=== PATIENT | female | born 1990 | race American Indian/Alaskan Native ===

== ENCOUNTER 2020-07-11 09:53 | Emergency (ER) | payer SELFPAY ==
[2020-07-11] MEDS ORDERED: ACETAMINOPHEN 325 MG TAB PO ONE (12:58)
[2020-07-11] MEDS ORDERED: IBUPROFEN 400 MG TAB PO ONE (12:58)
--- NOTE | 2020-07-11 13:03 | Emergency Department Report ---
ED General Adult HPI - General Chief complaint: Upper Respiratory Infection Stated complaint: CHEST PAIN/CONGESTION/COUGH PUI?: Yes Time Seen by Provider: 07/11/20 12:40 Source: patient, RN notes reviewed Mode of arrival: Ambulatory Limitations: No Limitations - History of Present Illness Initial comments: The patient was evaluated in the emergency department for symptoms described in the history of present illness. He/she was evaluated in the context of the global COVID-19 pandemic, which necessitated consideration that the patient might be at risk for infection with the virus that causes COVID-19. Institutional protocols and algorithms that pertain to the evaluation of patients at risk for COVID-19 are in a state of rapid change based on information released by regulatory bodies including the CDC and federal and state organizations. These policies and algorithms were followed during the patient's care in the emergency department. Please note that these policies, procedures and recommendations changed on a rapid basis. Patient reports that she is not , and reports that she has not delivered or given in the past 6 weeks. During the entire history and physical examination, I had on complete personal protective equipment. 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 No headache, neck pain, abdominal pain, exertional shortness of breath, vomiting, diaphoresis, hematemesis, bright red blood per rectum, or urinary symptoms. She works on a regular basis, and has therefore not been able to socially distance or socially isolate. She wears a mask at work. She does not have loss of taste or smell. She has attempted [id number] remedies, with minimal improvement in symptoms. She states that she is not , denies control tablets, oral contraceptive use, surgery, immobilization, posterior leg pain, swelling. She does not smoke anything. Chest wall pain is intermittent, does not radiate anywhere, increases with palpation, coughing, decreases with rest. The patient denies DVT, pulmonary embolism risk factors. -: days(s) Location: chest Quality: aching Consistency: intermittent Improves with: rest Worsens with: other - Related Data Previous Rx's Medication Instructions Recorded Last Taken Type Acetaminophen [Non-Aspirin Extra 500 mg PO Q6HR PRN #30 tablet 07/11/20 Unknown Rx Strength] Albuterol Sulfate [Proair 90 mcg IH Q4HR PRN #2 aer.pow.ba 07/11/20 Unknown Rx Respiclick] Benzonatate [Tessalon Perles] 100 mg PO Q8HR PRN #30 capsule 07/11/20 Unknown Rx Ibuprofen [Motrin] 600 mg PO Q8H PRN #30 tablet 07/11/20 Unknown Rx Allergies Allergy/AdvReac Type Severity Reaction Status Date / Time No Known Allergies Allergy Verified 07/11/20 09:54 ED Review of Systems ROS: Stated complaint: CHEST PAIN/CONGESTION/COUGH Other details as noted in HPI Constitutional: denies: fever, malaise, weakness ENT: congestion. denies: throat pain, dental pain, hearing loss Respiratory: cough. denies: wheezing Cardiovascular: chest pain. denies: syncope Gastrointestinal: denies: abdominal pain, nausea, vomiting, constipation, hematemesis, melena Genitourinary: denies: dysuria Musculoskeletal: myalgia Neurological: denies: weakness ED Past Medical Hx - Past Medical History Previous Medical History?: No - Surgical History Past Surgical History?: No - Social History Smoking Status: Never Smoker Substance Use Type: None - Medications Home Medications: Home Medications Medication Instructions Recorded Confirmed Last Taken Type Acetaminophen [Non-Aspirin Extra 500 mg PO Q6HR PRN #30 tablet 07/11/20 Unknown Rx Strength] Albuterol Sulfate [Proair 90 mcg IH Q4HR PRN #2 aer.pow.ba 07/11/20 Unknown Rx Respiclick] Benzonatate [Tessalon Perles] 100 mg PO Q8HR PRN #30 capsule 07/11/20 Unknown Rx Ibuprofen [Motrin] 600 mg PO Q8H PRN #30 tablet 07/11/20 Unknown Rx ED Physical Exam - General Limitations: No Limitations General appearance: alert, in no apparent distress, obese - Head Head exam: Present: atraumatic, normocephalic - Eye Eye exam: Present: normal appearance, EOMI. Absent: nystagmus - ENT ENT exam: Present: normal exam, normal orophraynx, mucous membranes moist, normal external ear exam - Neck Neck exam: Present: normal inspection, full ROM. Absent: tenderness, meningismus - Respiratory Respiratory exam: Present: normal lung sounds bilaterally, chest wall tenderness. Absent: respiratory distress, wheezes, rales, rhonchi, stridor - Cardiovascular Cardiovascular Exam: Present: regular rate, normal rhythm, normal heart sounds. Absent: bradycardia, tachycardia, irregular rhythm, systolic murmur, diastolic murmur, rubs, gallop - GI/Abdominal GI/Abdominal exam: Present: soft, normal bowel sounds. Absent: distended, tenderness, guarding, rebound, rigid - Extremities Exam Extremities exam: Present: normal inspection, full ROM, other (2+ pulses noted in the bilateral upper and lower extremities. There is no palpable cord. negative Homans sign. Muscular compartments are soft. The pelvis is stable.). Absent: pedal edema, calf tenderness - Back Exam Back exam: Present: normal inspection, full ROM. Absent: tenderness, CVA tenderness (R), CVA tenderness (L), paraspinal tenderness, vertebral tenderness - Neurological Exam Neurological exam: Present: alert, normal gait, other (No facial droop. Tongue midline. Extraocular movements intact bilaterally. Facial sensation intact to light touch in V1, V2, V3 distribution bilaterally. 5 and a 5 strength in 4 extremities. Sensation intact to light touch in 4 extremities.). Absent: motor sensory deficit - Psychiatric Psychiatric exam: Present: normal affect, normal mood - Skin Skin exam: Present: warm, dry, intact, normal color. Absent: rash ED Course Vital Signs 07/11/20 09:58 Temperature 98.0 F Pulse Rate 124 H Respiratory 16 Rate Blood Pressure 154/69 O2 Sat by Pulse 100 Oximetry ED Medical Decision Making - Lab Data Vital Signs 07/11/20 09:58 Temperature 98.0 F Pulse Rate 124 H Respiratory 16 Rate Blood Pressure 154/69 O2 Sat by Pulse 100 Oximetry - EKG Data -: EKG Interpreted by Me EKG shows normal: sinus rhythm Rate: tachycardia - EKG Data When compared to previous EKG there are: previous EKG unavailable 07/11/20 13:04 Sinus rhythm, tachycardia, 105 bpm, normal axis, normal intervals, minimal motion artifact. This EKG is not a STEMI. There is no prior available for comparison. - Radiology Data Radiology results: image reviewed interpreted by me: 1 view x-ray of the chest, interpreted by myself, shows clear lungs, unremarkable osseous anatomy, no obvious infiltrate, no pneumothorax. - Medical Decision Making Differential diagnosis, including but not limited to: Bronchitis, allergies, costochondritis, pneumonia Assessment and plan: 30-year-old female who with resolved tachycardia, heart rate currently 92 bpm, not tachypneic or hypoxic, with no DVT, pulmonary embolism risk factors, low risk by Wells criteria, no loss of taste or smell, presenting with 1 week of presumed costochondritis and bronchitis. May be Covid, however, given duration of symptoms, unremarkable vital signs and/or oxygen saturation, benign clinical appearance, does not meet criteria for hospitalization or admission. Reassurance provided to patient, extensive discussion had with patient regarding need to socially distance, self isolate, and also discussing the natural history of bronchitis and costochondritis. I advised patient that she may benefit from weight loss. EKG unremarkable, x-ray the chest pending. If unremarkable, discharged with acetaminophen, ibuprofen, albuterol, Tessalon Perles, can follow-up with an outpatient primary care doctor. Critical care attestation.: If time is entered above; I have spent that time in minutes in the direct care of this critically ill patient, excluding procedure time. ED Disposition Clinical Impression: Bronchitis, Chest wall pain Disposition: DC-01 TO HOME OR SELFCARE Is pt being admited?: No Does the pt Need Aspirin: No Condition: Good Instructions: Chest Pain (ED), Chronic Bronchitis (ED) Additional Instructions: As we discussed, the patient most likely has novel coronavirus/COVID. the symptoms of COVID will typically persist 10 to 14 days. There is no cure at this time for COVID. Please make certain to self isolate and self quarantine, follow-up with an outpatient primary care doctor within the next 3 to 5 days, wash hands with soap and water frequently, thoroughly and often, patient may take the prescribed medications as needed and directed. Advance diet and drink plenty of fluids as tolerated. Avoid interactions with the very elderly, very young, and those with chronic medical conditions. Return to the emergency room right away with new pain, worsening pain, migration of pain, projectile vomiting, change in mental status, confusion, inability to tolerate liquid feeds, new, worsened or different symptoms not present on the initial emergency room evaluation. Prescriptions: Ibuprofen [Motrin] 600 mg PO Q8H PRN #30 tablet PRN Reason: Pain Acetaminophen [Non-Aspirin Extra Strength] 500 mg PO Q6HR PRN #30 tablet PRN Reason: Pain , Severe (7-10) Albuterol Sulfate [Proair Respiclick] 90 mcg IH Q4HR PRN #2 aer.pow.ba PRN Reason: Wheezing Benzonatate [Tessalon Perles] 100 mg PO Q8HR PRN #30 capsule PRN Reason: Cough Referrals: NATASHA BRICENO MD [Staff Physician] - 3-5 Days [facility] [Provider Group] - 3-5 Days Forms: Work/School Release Form(ED)
--- NOTE | 2020-07-11 13:23 | XRay Report ---
XR chest 1V ap INDICATION / CLINICAL INFORMATION: chest wall pain with coughing COMPARISON: None available. FINDINGS: SUPPORT DEVICES: None. HEART / MEDIASTINUM: No significant abnormality. LUNGS / PLEURA: Lungs are clear. Costophrenic sulci are sharp. No pneumothorax. ADDITIONAL FINDINGS: No significant additional findings. IMPRESSION: 1. No acute findings. Signer Name: Juan J Galo MD Signed: 07/11/2020 1:18 PM Workstation Name: [id number]
[2020-07-11 13:25] VITALS: BP 139/89
== END 2020-07-11 13:46 | disposition home or self-care (01) ==
LOC: ED 09:53
DX: J40 Bronchitis, not specified as acute or chronic (principal); R07.89 Other chest pain; Z79.899 Other long term (current) drug therapy
CPT/HCPCS: 71045; 93005

== ENCOUNTER 2021-08-10 11:38 | Emergency (ER) | payer SELFPAY ==
[2021-08-10] MEDS ORDERED: ACETAMINOPHEN 500 MG TAB PO STA (12:00)
[2021-08-10] MEDS ORDERED: IBUPROFEN 800 MG TAB PO STA (12:41)
[2021-08-10 12:44] LABS: Basophils % (Auto) 0.9 % (0.0-1.8); Eosinophils % (Auto) 0.2 % (0.0-4.3); Hematocrit 37.1 % (30.3-42.9); Hemoglobin 11.1 gm/dl (10.1-14.3); Lymphocytes # (Auto) 1.2 K/mm3 (1.2-5.4); Lymphocytes % (Auto) 21.9 % (13.4-35.0); Mean Corpuscular HGB Conc 30 % (30-34); Mean Corpuscular Volume 72 fl (79-97); Monocytes # (Auto) 0.5 K/mm3 (0.0-0.8); Monocytes % (Auto) 9.7 % (0.0-7.3); Platelet Count 281 K/mm3 (140-440); Red Blood Count 5.15 M/mm3 (3.65-5.03); Red Cell Distribution Width 17.8 % (13.2-15.2)
--- NOTE | 2021-08-10 12:45 | Emergency Department Report ---
ED General Adult HPI - General Chief complaint: Chest Pain Stated complaint: CHEST PAIN, HEAVY COUGH, HEADACHE Time Seen by Provider: 08/10/21 11:59 Source: patient Mode of arrival: Ambulatory Limitations: No Limitations - History of Present Illness Initial comments: 31-year-old -[place] female patient presents with complaints of cough, body aches, chills, and chest pain. Patient states her symptoms began with a sore throat on Sunday. She states the sore throat resolved and she developed a cough with mild yellow/brown mucus production. She states her chest pain mainly occurs with coughing and is sharp in nature. She states there is a dull pressure-like pain in her chest when she is not coughing or when she is taking a deep breath. Patient states she is vaccinated against COVID-19. She has not had a flu vaccine. No past medical history per patient. She also denies any shortness of breath, loss of taste or smell, recent known sick contacts, nausea/vomiting/diarrhea, hormone use, recent long travel, or leg pain/swelling. No history of DVT/PE/cancer per patient. Severity scale (0 -10): 7 - Related Data Previous Rx's Medication Instructions Recorded Last Taken Type Acetaminophen [Non-Aspirin Extra 500 mg PO Q6HR PRN #30 tablet 07/11/20 Unknown Rx Strength] Albuterol Sulfate [Proair 90 mcg IH Q4HR PRN #2 aer.pow.ba 07/11/20 Unknown Rx Respiclick] Benzonatate [Tessalon Perles] 100 mg PO Q8HR PRN #30 capsule 07/11/20 Unknown Rx Ibuprofen [Motrin] 600 mg PO Q8H PRN #30 tablet 07/11/20 Unknown Rx Benzonatate 200 mg PO TID PRN #30 capsule 08/10/21 Unknown Rx Ibuprofen [Motrin 800 MG tab] 800 mg PO Q8HR PRN #20 tablet 08/10/21 Unknown Rx predniSONE [Deltasone] 20 mg PO BID 3 Days #6 tablet 08/10/21 Unknown Rx Allergies Allergy/AdvReac Type Severity Reaction Status Date / Time No Known Allergies Allergy Verified 08/10/21 11:49 ED Review of Systems ROS: Stated complaint: CHEST PAIN, HEAVY COUGH, HEADACHE Other details as noted in HPI Constitutional: chills, malaise. denies: diaphoresis, fever Respiratory: cough. denies: shortness of breath Cardiovascular: as per HPI. denies: dyspnea on exertion Gastrointestinal: denies: abdominal pain, nausea, vomiting Neurological: headache (Mild patient). denies: numbness, paresthesias, confusion, abnormal gait Hematological/Lymphatic: denies: swollen glands ED Past Medical Hx - Social History Smoking Status: Never Smoker Substance Use Type: None - Medications Home Medications: Home Medications Medication Instructions Recorded Confirmed Last Taken Type Acetaminophen [Non-Aspirin Extra 500 mg PO Q6HR PRN #30 tablet 07/11/20 Unknown Rx Strength] Albuterol Sulfate [Proair 90 mcg IH Q4HR PRN #2 aer.pow.ba 07/11/20 Unknown Rx Respiclick] Benzonatate [Tessalon Perles] 100 mg PO Q8HR PRN #30 capsule 07/11/20 Unknown Rx Ibuprofen [Motrin] 600 mg PO Q8H PRN #30 tablet 07/11/20 Unknown Rx Benzonatate 200 mg PO TID PRN #30 capsule 08/10/21 Unknown Rx Ibuprofen [Motrin 800 MG tab] 800 mg PO Q8HR PRN #20 tablet 08/10/21 Unknown Rx predniSONE [Deltasone] 20 mg PO BID 3 Days #6 tablet 08/10/21 Unknown Rx ED Physical Exam - General Limitations: No Limitations General appearance: alert, in no apparent distress, obese - Head Head exam: Present: atraumatic, normocephalic - Eye Eye exam: Absent: scleral icterus - ENT ENT exam: Present: normal orophraynx - Respiratory Respiratory exam: Present: normal lung sounds bilaterally, chest wall tenderness. Absent: respiratory distress - Cardiovascular Cardiovascular Exam: Present: regular rate, normal rhythm - GI/Abdominal GI/Abdominal exam: Present: soft. Absent: tenderness - Extremities Exam Extremities exam: Absent: calf tenderness (No swelling noted to legs bilaterally) - Neurological Exam Neurological exam: Present: alert, oriented X3, normal gait - Psychiatric Psychiatric exam: Present: normal affect, normal mood - Skin Skin exam: Present: warm, dry, intact, normal color. Absent: rash ED Course Vital Signs 08/10/21 08/10/21 11:50 14:06 Temperature 100.2 F H 98.4 F Pulse Rate 107 H 64 Respiratory 20 15 Rate Blood Pressure 153/86 Blood Pressure 130/80 [Right] O2 Sat by Pulse 99 100 Oximetry ED Medical Decision Making - Lab Data Result diagrams: 08/10/21 12:10 08/10/21 12:10 Lab Results 08/10/21 08/10/21 08/10/21 Range/Units 12:10 12:10 12:10 WBC 5.4 (4.5-11.0) K/mm3 RBC 5.15 H (3.65-5.03) M/mm3 Hgb 11.1 (10.1-14.3) gm/dl Hct 37.1 (30.3-42.9) % MCV 72 L (79-97) fl MCH 22 L (28-32) pg MCHC 30 (30-34) % RDW 17.8 H (13.2-15.2) % Plt Count 281 (140-440) K/mm3 Lymph % (Auto) 21.9 (13.4-35.0) % [place] % (Auto) 9.7 H (0.0-7.3) % Eos % (Auto) 0.2 (0.0-4.3) % Baso % (Auto) 0.9 (0.0-1.8) % Lymph # (Auto) 1.2 (1.2-5.4) K/mm3 [place] # (Auto) 0.5 (0.0-0.8) K/mm3 Eos # (Auto) 0.0 (0.0-0.4) K/mm3 Baso # (Auto) 0.0 (0.0-0.1) K/mm3 Seg Neutrophils % 67.3 (40.0-70.0) % Seg Neutrophils # 3.6 (1.8-7.7) K/mm3 Sodium 135 L (137-145) mmol/L Potassium 3.9 (3.6-5.0) mmol/L Chloride 98.9 (98-107) mmol/L Carbon Dioxide 26 (22-30) mmol/L Anion Gap 14 mmol/L BUN 8 (7-17) mg/dL Creatinine 0.8 (0.6-1.2) mg/dL Estimated GFR > 60 ml/min BUN/Creatinine Ratio 10 % Glucose 86 (65-100) mg/dL Calcium 8.8 (8.4-10.2) mg/dL Troponin T (0.00-0.029) ng/mL HCG, Qual Negative (Negative) 08/10/21 Range/Units 13:13 WBC (4.5-11.0) K/mm3 RBC (3.65-5.03) M/mm3 Hgb (10.1-14.3) gm/dl Hct (30.3-42.9) % MCV (79-97) fl MCH (28-32) pg MCHC (30-34) % RDW (13.2-15.2) % Plt Count (140-440) K/mm3 Lymph % (Auto) (13.4-35.0) % [place] % (Auto) (0.0-7.3) % Eos % (Auto) (0.0-4.3) % Baso % (Auto) (0.0-1.8) % Lymph # (Auto) (1.2-5.4) K/mm3 [place] # (Auto) (0.0-0.8) K/mm3 Eos # (Auto) (0.0-0.4) K/mm3 Baso # (Auto) (0.0-0.1) K/mm3 Seg Neutrophils % (40.0-70.0) % Seg Neutrophils # (1.8-7.7) K/mm3 Sodium (137-145) mmol/L Potassium (3.6-5.0) mmol/L Chloride (98-107) mmol/L Carbon Dioxide (22-30) mmol/L Anion Gap mmol/L BUN (7-17) mg/dL Creatinine (0.6-1.2) mg/dL Estimated GFR ml/min BUN/Creatinine Ratio % Glucose (65-100) mg/dL Calcium (8.4-10.2) mg/dL Troponin T < 0.010 (0.00-0.029) ng/mL HCG, Qual (Negative) - EKG Data Interpretation: other (Left atrial enlargement ) - Radiology Data Radiology results: report reviewed CHEST 2 VIEWS INDICATION / CLINICAL INFORMATION: cough. COMPARISON: 07/11/2020 FINDINGS: SUPPORT DEVICES: None. HEART / MEDIASTINUM: No significant abnormality. LUNGS / PLEURA: No significant pulmonary or pleural abnormality. No pneumothorax. ADDITIONAL FINDINGS: No significant additional findings. IMPRESSION: 1. No acute findings. - Medical Decision Making 31-year-old -[place] female patient presents with complaints of cough, body aches, chills, and chest pain. Patient states her symptoms began with a sore throat on Sunday. She states the sore throat resolved and she developed a cough with mild yellow/brown mucus production. She states her chest pain mainly occurs with coughing and is sharp in nature. She states there is a dull pressure-like pain in her chest when she is not coughing or when she is taking a deep breath. Patient states she is vaccinated against COVID-19. She has not had a flu vaccine. No past medical history per patient. She also denies any shortness of breath, loss of taste or smell, recent known sick contacts, nausea/vomiting/diarrhea, hormone use, recent long travel, or leg pain/swelling. No history of DVT/PE/cancer per patient. Patient refused blood draw for dimer Patient also refuses rapid flu test Mild fever and tachycardia noted upon arrival, now resolved with Tylenol. Discussed importance of D-dimer test and possibility of PE and , patient continues to refuse test. Lungs are clear on exam to auscultation bilaterally. Chest x-ray is normal. Will treat patient's symptoms conservatively for now. Patient informed to get COVID-19 testing within the next 24 to 48 hours and self quarantine until her results are back. Patient's vitals are within normal limits, she is well-appearing, and is stable for discharge home. Recommend patient follows up with his PCP in 3 to 5 days. Discussed presumptive diagnosis, care plan, signs and symptoms that should prompt immediate return to the ED with patient who verbalizes understanding Critical care attestation.: If time is entered above; I have spent that time in minutes in the direct care of this critically ill patient, excluding procedure time. ED Disposition Clinical Impression: Viral syndrome Disposition: HOME / SELF CARE / HOMELESS Is pt being admited?: No Condition: Stable Instructions: Viral Respiratory Infection Prescriptions: Benzonatate 200 mg PO TID PRN #30 capsule PRN Reason: Cough predniSONE [Deltasone] 20 mg PO BID 3 Days #6 tablet Ibuprofen [Motrin 800 MG tab] 800 mg PO Q8HR PRN #20 tablet PRN Reason: Fever/pain Referrals: PRIMARY CARE, [Primary Care Provider] - 3-5 Days [facility] [Provider Group] - 3-5 Days Forms: Work/School Release Form(ED)
--- NOTE | 2021-08-10 13:27 | XRay Report ---
CHEST 2 VIEWS INDICATION / CLINICAL INFORMATION: cough. COMPARISON: 07/11/2020 FINDINGS: SUPPORT DEVICES: None. HEART / MEDIASTINUM: No significant abnormality. LUNGS / PLEURA: No significant pulmonary or pleural abnormality. No pneumothorax. ADDITIONAL FINDINGS: No significant additional findings. IMPRESSION: 1. No acute findings. Signer Name: Rafael Jacques MD Signed: 08/10/2021 1:22 PM Workstation Name: [id number]
[2021-08-10 13:31] LABS: BUN/Creatinine Ratio 10; Blood Urea Nitrogen 8 mg/dL (7-17); Calcium 8.8 mg/dL (8.4-10.2); Hemolysis Index 7
[2021-08-10 14:11] VITALS: BP 130/80
--- NOTE | 2021-08-11 10:32 | Electrocardiograph Report ---
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
== END 2021-08-10 15:48 | disposition home or self-care (01) ==
LOC: ED 11:38
DX: B34.9 Viral infection, unspecified (principal)
CPT/HCPCS: 36415; 71046; 80048; 84484; 84703; 85025; 93005; 99284